=== PATIENT | female | born 1955 | race Caucasian/White ===

== ENCOUNTER 2016-05-07 15:43 | Emergency (ER) | payer OTHER ==
[~2016-05-07] VITALS: Ht 170.2 cm; Wt 103.1 kg
[~2016-05-07 15:43] MED LIST: FLEXERIL10 MG PO; MOTRIN800 MG PO; PERCOCET 5/31 TABLET PO
[2016-05-07 17:07] LABS: POINT-OF-CARE METER ID UU14100415
[2016-05-07 17:13] LABS: CHLORIDE 101 mEq/L (99-109); POTASSIUM 3.1 mEq/L (3.7-5.4); SODIUM 140 mEq/L (136-147)
[2016-05-07 17:15] LABS: D-DIMER ELISA 0.31 mg/L FEU (< 0.57); GLUCOSE 95 mg/dL (70-99)
[2016-05-07 17:16] LABS: ANION GAP 14 MEQ/L (2-14)
[2016-05-07 17:18] LABS: GFR ESTIMATE (CALCULATED) > 59 mL/min/
[2016-05-07 17:19] LABS: UREA NITROGEN (BUN) 9 mg/dL (9-23)
[2016-05-07] MEDS ORDERED: ZITHROMAX250 MG PO (17:43)
[2016-05-07] MEDS ORDERED: PREDNISONE50 MG PO (17:43)
[2016-05-07 17:54] LABS: HEMATOCRIT 39.2 % (36.0-46.0); MCH 23.6 PG (29.0-34.0); MCHC 32.1 G/DL (30.0-36.0); MCV 73.5 FL (83-99); PLATELET COUNT 461 K/uL (156-360); RBC DIS.WIDTH-CV 15.9 % (11.8-14.6); RBC DIS.WIDTH-SD 41.4 % (39-53); RED BLOOD COUNT 5.33 M/uL (3.80-5.20); WHITE BLOOD COUNT 12.5 K/uL (4.1-10.2)
[2016-05-07 18:07] VITALS: BP 107/85
== END 2016-05-07 18:23 | disposition home or self-care (01) ==
LOC: EME 15:43
PROVIDERS: Nurse Practitioner Family
DX: J40 Bronchitis, not specified as acute or chronic (principal); F41.9 Anxiety disorder, unspecified
CPT/HCPCS: 71020; 80048; 82948; 85027; 85379; 93005; 94640; 99281; 99284; J1100

== ENCOUNTER → 2017-08-05 | Outpatient (CLI) | payer OTHER ==
[~2017-08-05] MED LIST changes: +PREDNISONE50 MG PO; +ZITHROMAX250 MG PO
== END | disposition home or self-care (01) ==
LOC: CDC 11:14
DX: I49.8 Other specified cardiac arrhythmias (principal); R94.31 Abnormal electrocardiogram [ECG] [EKG]; M65.312 Trigger thumb, left thumb
CPT/HCPCS: 93000